=== PATIENT | female | born 1950 | race Caucasian/White ===

== ENCOUNTER 2017-11-18 07:19 | Inpatient (IN) | payer MEDICARE ==
[~2017-11-18] VITALS: Ht 152.4 cm; Wt 78.5 kg
[~2017-11-18 07:19] MED LIST: BENA10TA9 PO
[2017-11-18] MEDS ORDERED: ceFAZolin 1GM/100ML 100 ML IV ONE (08:10)
[2017-11-18] MEDS ORDERED: CELECOXIB 100 MG CAP PO ONE (08:15)
[2017-11-18] MEDS ORDERED: ACETAMINOPHEN IV 1000 MG/100ML (10MG/ML) IV ONE (08:15)
[2017-11-18] MEDS ORDERED: ceFAZolin 1GM 2 GM in D5W 5% 100 ML IV ONE (08:15)
[2017-11-18] MEDS ORDERED: PREGABALIN CAPSULE 75 MG CAP PO ONE (08:15)
[2017-11-18] MEDS ORDERED: BUPIVACAINE W/ EPINEPH 0.25% INJ 50ML MDV ONE (08:34)
[2017-11-18] MEDS ORDERED: VANCOMYCIN HCL 1000 MG VL ONE (08:35)
[2017-11-18] MEDS ORDERED: MORPHINE SULF(PF) 0.5MG/ML 10ML VIAL ONE ×2 (08:36→09:08)
[2017-11-18] MEDS ORDERED: KETOROLAC TROMETH 30 MG/ML 1ML VIAL ONE (08:36)
[2017-11-18] MEDS ORDERED: BUPIVACAINE HCL 50 ML ONE (08:41)
[2017-11-18] MEDS ORDERED: LIDOCAINE W/ EPINEPHRINE 2% INJ 20ML VIAL ONE (08:41)
[2017-11-18] MEDS ORDERED: TRANEXAMIC ACID 20 ML ONE (08:42)
[2017-11-18] MEDS ORDERED: MIDAZOLAM HCL 1MG/1ML-2 ML VIAL ONE ×3 (08:51→09:43)
[2017-11-18] MEDS ORDERED: ePHEDrine SULFATE 50 MG/ML AMP ONE (09:18)
[2017-11-18] MEDS ORDERED: PROPOFOL 10 MG/ML 20 ML IV ONE ×2 (09:24→11:04)
[2017-11-18] MEDS ORDERED: fentaNYL CITRATE 100 MCG/2 ML VL ONE (09:32)
[2017-11-18] MEDS ORDERED: NALOXONE HCL 0.4 MG/ML VIAL IV PRN ×2 (09:45)
[2017-11-18] MEDS ORDERED: ONDANSETRON HCL 4 MG/2 ML VIAL IV ONE (09:45)
[2017-11-18] MEDS ORDERED: ePHEDrine SULFATE 50 MG/ML AMP IV PRN (09:45)
[2017-11-18] MEDS ORDERED: ONDANSETRON HCL 4 MG/2 ML VIAL IV PRN (09:45)
[2017-11-18] MEDS ORDERED: MORPHINE SULFATE 4 MG/ML SYR/VIAL IV PRN ×2 (09:45→12:15)
[2017-11-18] MEDS ORDERED: diphenhdrAMINE HCL 50 MG/1 ML VL IV PRN (09:45)
[2017-11-18] MEDS ORDERED: diphenhdrAMINE HCL 50 MG/1 ML VL ONE (10:12)
[2017-11-18] MEDS ORDERED: PHENYLEPHRINE HCL 10 MG/ML VL ONE (10:23)
[2017-11-18] MEDS ORDERED: traMADol HCL 50 MG TAB PO PRN (12:15)
[2017-11-18] MEDS ORDERED: NITROGLYCERIN 0.4 MG SL TAB SL PRN (12:15)
[2017-11-18] MEDS ORDERED: OXYCODONE W/ ACETAMINOPHEN 5/325MG TABLET PO PRN (12:15)
[2017-11-18] MEDS ORDERED: ACETAMINOPHEN 325 MG TAB PO PRN (12:15)
[2017-11-18] MEDS ORDERED: BISACODYL 5 MG EC TAB PO PRN (12:15)
[2017-11-18] MEDS: LACTATED RINGER'S 1,000 ML IV SCH ×2 (14:46→21:45)
[2017-11-18] MEDS: SODIUM CHLOR 0.9% PF (SALINE LOCK) 10ML VIAL/SYR IV SCH ×2 (16:25→21:41)
[2017-11-18] MEDS: KETOROLAC TROMETH 30 MG/ML 1ML VIAL IV SCH ×2 (16:25→21:42)
[2017-11-18 17:00] VITALS: BP 91/61
[2017-11-18] MEDS: ceFAZolin 1GM/100ML 50 ML IV SCH ×2 (18:13→23:43)
[2017-11-18 18:16] VITALS: BP 91/61
[2017-11-18] MEDS: ONDANSETRON HCL 4 MG/2 ML VIAL IV PRN (18:53)
[2017-11-18 21:30] VITALS: BP 110/70
[2017-11-18] MEDS: DOCUSATE SOD 100 MG CAP PO SCH (21:42)
[2017-11-18] MEDS: oxyCODONE ER 10 MG TAB PO SCH (21:43)
[2017-11-18] MEDS: BENAZEPRIL HCL 10 MG TAB PO SCH (21:44)
[2017-11-19] MEDS: ONDANSETRON HCL 4 MG/2 ML VIAL IV PRN (00:32)
[2017-11-19] MEDS: OXYCODONE W/ ACETAMINOPHEN 5/325MG TABLET PO PRN ×3 (04:23→19:41)
[2017-11-19 05:00] VITALS: BP 118/68
[2017-11-19] MEDS: KETOROLAC TROMETH 30 MG/ML 1ML VIAL IV SCH ×3 (05:46→21:54)
[2017-11-19] MEDS: SODIUM CHLOR 0.9% PF (SALINE LOCK) 10ML VIAL/SYR IV SCH ×3 (05:46→21:55)
[2017-11-19] MEDS: ceFAZolin 1GM/100ML 50 ML IV SCH (05:48)
[2017-11-19 07:10] LABS: Hematocrit 33.8 % (36.0-46.0); Hemoglobin 11.3 g/dL (12.2-16.2)
[2017-11-19 07:16] LABS: Albumin 3.4 g/dL (3.4-5.0)
[2017-11-19 07:19] LABS: BUN/Creatinine Ratio 17.1; Bilirubin, Total 0.7 mg/dL (0.2-1.0); Calcium 8.5 mg/dL (8.5-10.1); Total Protein 6.9 g/dL (6.4-8.2)
[2017-11-19] MEDS ORDERED: LACTATED RINGER'S 1,000 ML IV ONE (07:30)
[2017-11-19 08:00] VITALS: BP 96/65
[2017-11-19] MEDS: BOOST PLUS 8 ounce PO SCH ×3 (08:00→18:00)
[2017-11-19 09:00] VITALS: BP 96/65
[2017-11-19] MEDS: DOCUSATE SOD 100 MG CAP PO SCH ×2 (11:00→21:53)
[2017-11-19] MEDS: oxyCODONE ER 10 MG TAB PO SCH ×2 (11:00→21:54)
[2017-11-19] MEDS: ENOXAPARIN SOD 40 MG/0.4 ML SYRINGE SC SCH (11:02)
[2017-11-19 13:00] VITALS: BP 109/65
[2017-11-19 17:00] VITALS: BP 106/47
[2017-11-19] MEDS: MORPHINE SULFATE 4 MG/ML SYR/VIAL IV PRN (17:20)
[2017-11-19] MEDS: BENAZEPRIL HCL 10 MG TAB PO SCH (21:53)
[2017-11-19 22:00] VITALS: BP 118/58
[2017-11-20] MEDS: OXYCODONE W/ ACETAMINOPHEN 5/325MG TABLET PO PRN ×3 (00:04→20:58)
[2017-11-20] MEDS: MORPHINE SULFATE 4 MG/ML SYR/VIAL IV PRN (01:48)
[2017-11-20 05:00] VITALS: BP 103/66
[2017-11-20] MEDS: KETOROLAC TROMETH 30 MG/ML 1ML VIAL IV SCH ×2 (05:59→07:14)
[2017-11-20] MEDS: SODIUM CHLOR 0.9% PF (SALINE LOCK) 10ML VIAL/SYR IV SCH ×3 (05:59→21:59)
[2017-11-20 07:39] LABS: Hematocrit 32.3 % (36.0-46.0); Hemoglobin 10.7 g/dL (12.2-16.2)
[2017-11-20] MEDS ORDERED: OXYCODONE W/ ACETAMINOPHEN 5/325MG TABLET PO PRN (08:00)
[2017-11-20] MEDS: BOOST PLUS 8 ounce PO SCH ×3 (08:07→17:57)
[2017-11-20 08:15] LABS: BUN/Creatinine Ratio 20.7; Potassium 3.7 mmol/L (3.5-5.1)
[2017-11-20 09:00] VITALS: BP 115/62
[2017-11-20] MEDS: DOCUSATE SOD 100 MG CAP PO SCH ×2 (09:29→21:59)
[2017-11-20] MEDS: ENOXAPARIN SOD 40 MG/0.4 ML SYRINGE SC SCH (09:30)
[2017-11-20] MEDS: oxyCODONE ER 10 MG TAB PO SCH ×2 (09:30→21:59)
[2017-11-20 13:00] VITALS: BP 114/51
[2017-11-20 18:08] VITALS: BP 107/55
[2017-11-20] MEDS: BENAZEPRIL HCL 10 MG TAB PO SCH (21:59)
[2017-11-20 22:00] VITALS: BP 125/59
[2017-11-21] MEDS: OXYCODONE W/ ACETAMINOPHEN 5/325MG TABLET PO PRN ×2 (01:02→05:07)
[2017-11-21 05:00] VITALS: BP 109/68
[2017-11-21] MEDS: SODIUM CHLOR 0.9% PF (SALINE LOCK) 10ML VIAL/SYR IV SCH (06:00)
[2017-11-21 07:30] VITALS: BP 124/65
[2017-11-21] MEDS ORDERED: LACTATED RINGER'S 1,000 ML IV ONE (07:30)
[2017-11-21] MEDS: BOOST PLUS 8 ounce PO SCH (08:00)
[2017-11-21 08:10] LABS: Hematocrit 31.6 % (36.0-46.0); Hemoglobin 10.4 g/dL (12.2-16.2)
[2017-11-21 08:30] LABS: BUN/Creatinine Ratio 19.6; Calcium 8.9 mg/dL (8.5-10.1); Potassium 3.7 mmol/L (3.5-5.1)
[2017-11-21] MEDS: oxyCODONE ER 10 MG TAB PO SCH (09:34)
[2017-11-21] MEDS: DOCUSATE SOD 100 MG CAP PO SCH (09:34)
[2017-11-21] MEDS: ENOXAPARIN SOD 40 MG/0.4 ML SYRINGE SC SCH (09:35)
[2017-11-21 10:14] VITALS: BP 124/65
== END 2017-11-21 11:00 | DRG 470 ==
LOC: SUR 07:19 → EAST 07:20
PROVIDERS: ADMIT Orthopaedic Surgery Adult Reconstructive Orthopaedic Surgery; ATTEND Orthopaedic Surgery Adult Reconstructive Orthopaedic Surgery
PROC: 0SRD0J9 Replacement of Left Knee Joint with Synthetic Substitute, Cemented, Open Approach (ICD-10-PCS; principal; 2017-11-18 08:54)
DX: M17.0 Bilateral primary osteoarthritis of knee (principal); M06.9 Rheumatoid arthritis, unspecified; I10 Essential (primary) hypertension; Z71.3 Dietary counseling and surveillance; Z88.6 Allergy status to analgesic agent; Z87.11 Personal history of peptic ulcer disease
CPT/HCPCS: 36415; 73562; 80048; 80053; 85014; 85018; 86850; 86900; 86901; 97110; 97116; 97530; A6198; C1713; J0131; J0690; J1885; J2250; J2405; J2704; J3490

== ENCOUNTER 2017-12-09 15:24 | Emergency (ER) | payer MEDICARE ==
[~2017-12-09] VITALS: Ht 152.4 cm; Wt 62.6 kg
[2017-12-09 15:58] VITALS: BP 79/50
== END 2017-12-09 18:40 | disposition left against medical advice (07) ==
LOC: ER 15:24
DX: M25.562 Pain in left knee (principal); Z96.653 Presence of artificial knee joint, bilateral; Z88.6 Allergy status to analgesic agent; Z90.710 Acquired absence of both cervix and uterus